=== PATIENT | female | born 1970 ===

== ENCOUNTER 2024-06-12 14:38 | Emergency (ER) | payer SELFPAY ==
[~2024-06-12] VITALS: Ht 157.5 cm; Wt 75.6 kg
[2024-06-12 14:38] VITALS: BP 167/91; TEMP 97.3; O2SAT 96
== END 2024-06-12 15:35 | disposition left against medical advice (07) ==
LOC: M ED 14:38
DX: Z53.21 Procedure and treatment not carried out due to patient leaving prior to being seen by health care provider (principal)